=== PATIENT | female | born 1970 | race Caucasian/White ===

== ENCOUNTER 2017-12-20 09:30 | Day surgery (SDC) | payer OTHER ==
[~2017-12-20] VITALS: Ht 177.8 cm; Wt 85.5 kg
== END 2017-12-20 12:56 | disposition home or self-care (01) ==
LOC: ORSCSDS 09:30
PROVIDERS: Podiatrist Foot & Ankle Surgery
PROC: 0L8P3ZZ Division of Left Lower Leg Tendon, Percutaneous Approach (ICD-10-PCS; principal; 2017-12-20 11:00)
DX: M76.62 Achilles tendinitis, left leg (principal); E06.3 Autoimmune thyroiditis; F17.210 Nicotine dependence, cigarettes, uncomplicated
CPT/HCPCS: J0690; J1100; J1885; J2250; J2405; J2710; J2765; J3010; J7120

== ENCOUNTER → 2019-09-01 | Outpatient (CLI) | payer OTHER | END | disposition home or self-care (01) | LOC: LAB EV 16:03 → LAB SHORT 16:03 | DX: Z20.828 Contact with and (suspected) exposure to other viral communicable diseases (principal) | CPT/HCPCS: U0002 ==

== ENCOUNTER 2023-05-08 17:17 | Emergency (ER) | payer OTHER ==
[~2023-05-08] VITALS: Ht 175.3 cm; Wt 90.7 kg
[2023-05-08 18:43] VITALS: BP 128/80
== END 2023-05-08 18:49 | disposition home or self-care (01) ==
LOC: ER 17:17
DX: S61.250A Open bite of right index finger without damage to nail, initial encounter (principal); F17.200 Nicotine dependence, unspecified, uncomplicated; W55.01XA Bitten by cat, initial encounter; Y93.89 Activity, other specified; Z88.8 Allergy status to other drugs, medicaments and biological substances; Z91.040 Latex allergy status
CPT/HCPCS: 99282

== ENCOUNTER → 2023-05-08 | Outpatient (CLI) | payer OTHER | END | disposition home or self-care (01) | LOC: LAB SHORT 10:31 → LAB 10:31 | DX: T14.8XXA Other injury of unspecified body region, initial encounter (principal); W55.01XA Bitten by cat, initial encounter | CPT/HCPCS: 87070; 87075; 87076; 87077; 87185; 87205 ==

== ENCOUNTER → 2023-12-03 | Outpatient (CLI) | payer OTHER ==
[~2023-12-03] MED LIST: PROP10 PO; SERT100 PO
[2023-12-03 19:02] LABS: Hematocrit 42.6 % (33.0-51.0); Hemoglobin 14.1 g/dL (11.5-16.0); Mean Corpuscular HGB 28.6 pg (26.0-34.0); Mean Corpuscular HGB Conc 33.1 g/dL (31.5-36.5); Mean Corpuscular Volume 86 fL (80-100); Platelet Count 154 K/mm3 (150-400); RDW Coefficient Variation 15.4 % (11.7-14.2); RDW Standard Deviation 48.6 fL (35.1-46.3); Red Blood Cell Count 4.93 M/mm3 (3.80-5.20); White Blood Cell Count 6.85 K/mm3 (4.00-11.30)
[2023-12-03 19:15] LABS: Albumin, Blood 4.2 g/dL (3.4-5.0); Albumin/Globulin Ratio 1.1 (0.8-1.8); Bilirubin, Direct 0.1 mg/dL (0.0-0.3); Bilirubin, Indirect 0.2 mg/dL (0.1-0.7); Bilirubin, Total 0.3 mg/dL (0.1-1.0); Calcium, Blood 9.1 mg/dL (8.5-10.1); Globulin, Blood 3.7 g/dL (2.2-4.0); Phosphorus, Blood 3.2 mg/dL (2.5-4.9); Potassium, Blood 3.6 mmol/L (3.5-5.5); Total Protein, Blood 7.9 g/dL (6.4-8.2)
[2023-12-03 19:17] LABS: Bun/Creatinine Ratio 11.1 (12.0-20.0); Creatinine, Blood 0.99 mg/dL (0.40-1.00)
[2023-12-03 19:34] LABS: BASOPHILS PERCENT MAN 0 % (0-2); EOSINOPHILS ABSOLUTE MAN 0.41 K/mm3 (0.00-0.68); EOSINOPHILS PERCENT MAN 6 % (0-6); LYMPHOCYTES ABSOLUTE MAN 1.37 K/mm3 (0.84-5.20); LYMPHOCYTES PERCENT MAN 20 % (21-46); MONOCYTES ABSOLUTE MAN 0.47 K/mm3 (0.16-1.47); MONOCYTES PERCENT MAN 7 % (4-13); NEUTROPHILS ABSOLUTE MAN 4.58 K/mm3 (1.96-9.15); SEG NEUTROPHILS PERCENT MAN 67 % (41-73); TOTAL CELLS COUNTED 100
== END | disposition home or self-care (01) ==
LOC: LAB SHORT 18:11 → LAB 18:11
PROVIDERS: Nurse Practitioner
DX: T67.5XXA Heat exhaustion, unspecified, initial encounter (principal)
CPT/HCPCS: 80053; 82248; 82550; 84100; 85007; 85027